=== PATIENT | female | born 1960 | race Caucasian/White ===

== ENCOUNTER 2020-04-05 13:42 | Outpatient (CLI) | payer OTHER, SELFPAY ==
--- NOTE | 2020-04-05 14:34 | ECG_ITS ---
Measurements Intervals [place] Rate: 53 P: -31 [place]: 135 QRS: 9 QRSD: 92 T: -7 QT: 450 QTc: 426 Interpretive Statements SINUS BRADYCARDIA INCOMPLETE RIGHT BUNDLE BRANCH BLOCK NONSPECIFIC T-WAVE ABNORMALITY- ANT/INF LEADS BORDERLINE ECG Electronically Signed On 04-05-2020 14:59:10 CLIENT CARE SPECIALIST by Sanchez Olson D.O.
== END 2020-04-05 13:43 | disposition home or self-care (01) ==
PROVIDERS: Visit Provider Otolaryngology Plastic Surgery within the Head & Neck
DX: Z01.812 Encounter for preprocedural laboratory examination (principal); Z01.818 Encounter for other preprocedural examination; R94.31 Abnormal electrocardiogram [ECG] [EKG]; I45.10 Unspecified right bundle-branch block
CPT/HCPCS: 93005